=== PATIENT | male | born 1985 | race Caucasian/White ===

== ENCOUNTER → 2016-09-09 | Day surgery (SDC) | payer OTHER ==
[2016-09-07 09:02] VITALS: Ht 182.9 cm; Wt 120.5 kg
[~2016-09-09] VITALS: Ht 182.9 cm; Wt 120.5 kg
[~2016-09-09] MED LIST: FENTANYL CITR 50 MCG/1 ML 5ML VIAL ONE; MELA1TAB5 PO; MIDAZOLAM HCL 5 MG/ML 1 ML VIAL ONE
--- NOTE | 2016-09-09 08:37 | Endo History and Physical ---
History & Physical Date of Service: Sep 09, 2016. Chief Complaint: Diarrhea Referring Physician: Dr. Yara Wooten History of Present Illness 31 yo CM who presents for colonoscopy secondary to diarrhea. Past Surgical History Hx Cardiac Surgery: No Hx Internal Defibrillator: No Hx Pacemaker: No Hx Abdominal Surgery: No Hx of Implantable Prosthesis: No Hx Post-Op Nausea and Vomiting: No Hx Cancer Surgery: No Hx Thoracic Surgery: No Hx Orthopedic: No Hx Urinary Tract Surgery: No Family History None Social History Smoking Status: Never Smoker Hx Substance Use: No Hx Alcohol Use: Yes (OCCASSIONALLY) Allergies Coded Allergies: NO KNOWN DRUG ALLERGIES (Verified Allergy, Unknown, ., 09/09/16) Uncoded Allergies: CATS (Allergy, Unknown, ., 09/07/16) Current Medications Reported Home Medications Medications Dose Route/Sig Max Daily Dose Days Date Category Kp Melatonin (Melatonin) 3 Mg Tab 1 Tab PO HS 30 09/07/16 Reported Vital Signs Weight (Kilograms): 120.45 Height (Feet): 6 Height (Inches): 0 Date Time Temp Pulse Resp B/P Pulse Ox O2 Delivery O2 Flow Rate FiO2 09/09/16 08:25 36.4 74 20 140/84 97 Room Air Physical Exam General Appearance: WD/WN, no apparent distress Respiratory/Chest: Auscultation: breath sounds normal Cardiovascular: Heart Auscultation: RRR Abdomen: Bowel Sounds: normal Inspection & Palpation: soft, non-distended, no tenderness, guarding & rebound Assessment and Plan Assessment: 31 yo CM who presents for colonoscopy secondary to diarrhea. Plan: Proceed with colonoscopy.
--- NOTE | 2016-09-09 09:24 | GI REPORT ---
Procedure Date: 09/09/2016 8:50 AM Procedure: Colonoscopy Indications: Chronic diarrhea Medicines: Fentanyl 100 micrograms IV, Midazolam 6 mg IV Complications: No immediate complications. Estimated Blood Loss: Estimated blood loss: none. Procedure: Pre-Anesthesia Assessment: - Prior to the procedure, a History and Physical was performed, and patient medications and allergies were reviewed. The patient's tolerance of previous anesthesia was also reviewed. The risks and benefits of the procedure and the sedation options and risks were discussed with the patient. All questions were answered, and informed consent was obtained. Prior Anticoagulants: The patient has taken no previous anticoagulant or antiplatelet agents. ASA Grade Assessment: II - A patient with mild systemic disease. After reviewing the risks and benefits, the patient was deemed in satisfactory condition to undergo the procedure. After I obtained informed consent, the scope was passed under direct vision. Throughout the procedure, the patient's blood pressure, pulse, and oxygen saturations were monitored continuously. The scope was introduced through the anus and advanced to the terminal ileum. The colonoscopy was performed without difficulty. The patient tolerated the procedure well. The quality of the bowel preparation was good. The terminal ileum, ileocecal valve, appendiceal orifice, and rectum were photographed. Findings: Non-bleeding internal hemorrhoids were found during retroflexion. The hemorrhoids were small. Several random biopsies were obtained with cold forceps for histology in the entire colon. Fluid aspiration for cytology was performed in the entire colon. Impression: - Non-bleeding internal hemorrhoids. - Several random biopsies were obtained in the entire colon. - Fluid aspiration was performed. Recommendation: - Resume previous diet. - Continue present medications. - Repeat colonoscopy for surveillance based on pathology results. - Return to GI clinic as previously scheduled. Jose Manuel Gleason DO 09/09/2016 9:23:43 AM This report has been signed electronically. Note Initiated On: 09/09/2016 8:50 AM
--- NOTE | 2016-09-09 09:25 | Discharge Instructions ---
Endoscopy Patient Instructions Date / Procedure(s) Performed Sep 09, 2016. Colonoscopy Allergy Information Coded Allergies: NO KNOWN DRUG ALLERGIES (Verified Allergy, Unknown, ., 09/09/16) Uncoded Allergies: CATS (Allergy, Unknown, ., 09/07/16) Discharge Date / Findings Sep 09, 2016. Internal hemorrhoids Random colon biopsies and stool studies performed Medication Instructions OK to resume all medications today as prescribed Reported Home Medications Medications Dose Route/Sig Max Daily Dose Days Date Category Kp Melatonin (Melatonin) 3 Mg Tab 1 Tab PO HS 30 09/07/16 Reported Provider Instructions Activity Restrictions - No exercising or heavy lifting for 24 hours. - Do not drink alcohol the day of the procedure. - Do not drive a car or operate machinery until the day after the procedure. - Do not make any important decisions or sign important papers in 24 hours after the procedure. Following Day: - Return to full activity which may include returning to work/school. Diet Start your diet with liquids and light foods (jello, soup, juice, toast). Then eat your usual diet if not nauseated. Treatment For Common After Affects For mild abdominal pain, bloating, or excessive gas: - Rest - Eat lightly - Lie on right side Follow-Up Information Follow-up with Dr. Yara Wooten as scheduled Anesthesia Information What You Should Know You have had a procedure that required some medicine to reduce anxiety and discomfort. This treatment is called moderate sedation. After receiving the treatment, you may be sleepy, but you will be able to breathe on your own. The effects of the treatment may last for several hours. Follow these instructions along with Activity/Diet recommendations noted above: * Do NOT do anything where dizziness or clumsiness would be dangerous. * Rest quietly at home today, then you can be up and about tomorrow. * Have a responsible person stay with you the rest of today. * You may have had an I.V. today. If so, you may take the dressing off later today. Recommendations Call your doctor if: * Trouble breathing * Continuous vomiting for more than 24 hours * Temperature above 101 degrees * Severe abdominal pain or bloating * Pain not relieved by pain medicine ordered * There is increased drainage or redness from any incision * A large amount of rectal bleeding greater than 2-3 tablespoons. (If you had a polyp/s removed or have hemorrhoids, a small amount of blood - from the rectum is to be expected.) * You have any unanswered questions or concerns. IN THE EVENT OF A SERIOUS EMERGENCY, GO TO THE NEAREST EMERGENCY ROOM Your discharge instructions were prepared by provider Jose Manuel Gleason. Patient Instructions Signature Page Luther Villarreal Patient (or Guardian) Signature/Date: I have read and understand the instructions given to me by my caregivers. Caregiver/RN/Doctor Signature/Date: The above-named patient and/or guardian has received patient instructions on this date. + Original Patient Signature Page (only) stays with chart. Please make copy for patient.
[2016-09-09 10:02] VITALS: BP 115/63; PULSE 65; O2SAT 99
== END | disposition home or self-care (01) ==
LOC: C.GI 08:11
PROVIDERS: ATTEND Internal Medicine
DX: R19.7 Diarrhea, unspecified (principal); K64.8 Other hemorrhoids

== ENCOUNTER → 2016-10-28 | Outpatient (CLI) | payer OTHER ==
[~2016-10-28] MED LIST changes: -FENTANYL CITR 50 MCG/1 ML 5ML VIAL ONE; -MIDAZOLAM HCL 5 MG/ML 1 ML VIAL ONE
--- NOTE | 2016-10-29 05:45 | PAP/PSG TECHNICIAN REPORT ---
[facility] Tail Puller Polysomnogram Report Study name: None Report date: 10/29/2016 Study date: 10/28/2016 Referring Physician: DR. SARAH WATERS Name: IMAN FERRIS Interpreting Physician: Phillip Gamble D.O. Date of : 1985 Tail Puller: Kelsey Maciel RPSGT. Sex: Male Age: 31 Study Type: PSG Weight: 270 lbs Height: 31 years, Height 6' 0" BMI: 36.61 Medications: MELATONIN 3 MG Patient History 31 yr-old male here for a baseline study. He has a history of snoring, daytime sleepiness, and frequent awakenings. His Elliott scale is 11. The test was started on room air. ETCO2 testing was not utilized during this study. Room 3 Parameters Monitored NPSG: E1-M2, E2-M1, Fp1-M2, Fp2-M1, F3-M2, F4-M2, F4-M1, C3-M2, C4-M2, C4-M1, O1-M2, O2-M2, O2-M1, T3-M2, T4-M1, P3-M2, P4-M1, CHIN1, CHIN2, HR, EKG, Legs, PFLOW, SNOR, FLOW, CFLOW, Tidal Volume, THOR, ABDO, SpO2, PLTH, CPRESS, ETCO2 Wave, ETCO2, pH Sleep Architecture Sleep Stages Time at Lights Off 11:01:09 PM STAGES Time (min.) TST (%) Time at Lights On 5:14:09 AM Wake 57.5 -- Total Recording Time (TRT) 373.00 min. N1 32.5 10 Total Sleep Period (TSP) 332.5 min. N2 213.0 68 Total Sleep Time (TST) 315.5min. N3 4.5 1 Awake Time 57.5 min. REM 65.5 21 Wake after Sleep Onset 30.5 min. Sleep Efficiency (SE) 85 % Sleep Onset Latency (MONICA) 27.0 min. Number of Stage 1 Shifts None Awakenings 14 Stage Changes 94 Number of REM periods 3 REM 65.5 21 REM Latency 81.0 min. NREM 250.0 79 Body Position Analysis Supine Right Left Side Prone Vertical Total Sleep Time (min.) 270.5 96.2 0.0 96.18 0.0 0.0 Total Sleep Time (%) 70% 30% 0% 30 0% N/A% Total Sleep Time REM (min.) 29.5 36.0 0.0 None 0.0 0.0 Total Sleep Time NREM (min.) 189.8 60.2 0.0 None 0.0 0.0 Intermittent Wake (min.) 51.2 6.3 0.0 None 0.0 0.0 Total Sleep Period (%) 70% None None None None None Arousals Myoclonus (PLM) * Events Count Index Events Count Index Spontaneous 28 5 Events Awake (PLMW) 61 63.7 Respiratory 10 1.9 Events Asleep w/ Arousal (PLMA) 9 1.7 PLM 9 2 Events Asleep w/o Arousal (PLMS) 81 15.4 Snoring 4 1 Total Asleep 90 17.1 Total 51 10 Total 151 24 Respiratory Analysis * CA OA MA CH H RERA Total Count 0 0 0 0 28 5 28 Index 0.0 0.0 0.0 0 5.3 1 6.3 Mean Duration 0.0 0.0 0.0 0.00 17.4 17.7 17.5 Longest Duration 0.0 0.0 0.0 0.00 0.0 18.8 34.9 Respiratory Event Summary Total Supine ~Supine Right Left Prone REM NREM Apneas Count 0 0 0 0 N/A N/A 0 0 Index 0.0 0 0 0.0 N/A N/A 0 0 Hypopneas (4% Desat) Count 28 25 3 3 N/A N/A 9 19 Index 5.3 6.8 2 1.9 N/A N/A 8.2 4.6 Apneas & All Hypopneas Count 28 25 3 3 N/A N/A 9 19 Index 5.3 7 2 2 N/A N/A 8.2 4.6 Respiratory Events (Ct Scan Technologist+All Hyp+RERA) Count 28 30 3 3 N/A N/A 9 19 Index 6.3 8 2 1.9 N/A N/A 8.2 5.8 Respiratory Related Arousal Count 10 30 1 1 N/A N/A 0 10 Index 1.9 2 1 1 N/A N/A 0 2 Snoring Analysis Supine Right Left Prone REM NREM Total Snore duration 3.4 min Snores count 92 51 N/A N/A 5 138 143 Snore mean duration 1.4 Sec Snores index 25 32 N/A N/A 4.6 33.1 27.2 TST with snoring (%) 1.1% Desaturation Event Summary: Minimum %SpO2 Event Count Mean/Min/Max Duration(sec.) Desaturation Index % Time In Bed > 90 41 29.5 / 10.5 / 55.0 6.7 98.1 86 - 90 2 19.1 / 17.5 / 20.8 17.0 1.9 81 - 85 0 N/A 0.0 0.0 76 - 80 0 N/A 0.0 0.0 71 - 75 0 N/A 0.0 0.0 66 - 70 0 N/A 0.0 0.0 61 - 65 0 N/A 0.0 0.0 56 - 60 0 N/A 0.0 0.0 51 - 55 0 N/A 0.0 0.0 < 50 0 N/A 0.0 0.0 Total REM NREM Awake <50% 0.0 min. 0.0 min. 0.0 min. 0.0 min. 51 - 60% 0.0 min. 0.0 min. 0.0 min. 0.0 min. 61 - 70% 0.0 min. 0.0 min. 0.0 min. 0.0 min. 71 - 80% 0.0 min. 0.0 min. 0.0 min. 0.0 min. 81 - 90% 7.1 min. 2.0 min. 5.0 min. 0.1 min. 91 - 100% 365.8 min. 63.5 min. 245.0 min. 57.3 min. Average 93 93 93 94 Minimum SpO2 86 86 88 90 Desaturation Event Index 6.6 11.0 6.0 4.2 # Desat. Events below 89% 3 2 1 N/A Time(%) with Saturation below 89% 0.1 0.1 0.0 0.0 Time(min.) with Saturation below 89% 0.4 0.3 0.1 0.0 Time (mins) REM (mins) NREM (mins) % of TST SpO2 Below 90% 24 10 N14 0.6 SpO2 Below 88% 1 0 0 0 Heart Rate Analysis Min (bpm) Max (bpm) Average (bpm) Awake 41 84 52 NREM 37 73 47 REM 40 66 51 Overall 37 73 48 Supplemental O2 Values Minimum O2 level: None Value Start Time End Time Tail Puller Comments Mr. Ferris slept in the right and supine positions. No cardiac arrhythmias or PLMs noted. No bruxism noted. Snoring was noted and scored as a 2 on a scale of 1 through 5. (0=no snoring, 5=snoring loud enough to be heard through a closed door or down the [address] way). He did not wake up to use the restroom during the night. Mr. Ferris stated that he slept about the same as usual. The final report will be interpreted and signed by a sleep physician. The completed physician report will then be placed in the patient medical record. Therapy (cm H2O) 0 TIB (min.) 373.0 TST (min.) 315.5 Sleep Onset (min.) 27.0 REM Onset From Sleep (min.) 81.0 Sleep Efficiency % 85 Wakefulness (%) 15 Wakefulness (min.) 57.5 NREM 1 (%) 10 NREM 1 (min.) 32.5 NREM 2 (%) 68 NREM 2 (min.) 213.0 NREM 3 (%) 1 NREM 3 (min.) 4.5 REM (%) 21 REM (min.) 65.5 # Arousals 51 Arousal Index 10 # Snore 143 Snore Index 27.2 AHI 5.3 AHI Supine 7 AHI Non-Supine 2 NREM AHI 4.6 REM AHI 8.2 RDI 6.3 # Obstructive Apnea 0 # Central Apnea 0 # Mixed Apnea 0 # Hypopneas 28 RERAs 5 Total Respiratory Events 33 Time Below SpO2 89% (min.) 0.4 Mean NREM SpO2 (%) 93 Mean REM SpO2 (%) 93 Mean Sleep SpO2 (%) 93 Min NREM SpO2 (%) 88 Min REM SpO2 (%) 86 Position Supine (min.) 270.5 Position Non-supine (min.) 96.2 LM Index Sleep 17.1 LM Index NREM 18.2 LM Index REM 12.8 Mean Heart Rate (bpm) 48 Min Heart Rate (bpm) 37
--- NOTE | 2016-10-29 21:48 | POLYSOMNOGRAPH REPORT ---
The patient is referred by Dr. Yara Wooten. CLINICAL DATA: The patient is a 31-year-old male with a BMI of 36.6. He has chief complaint of snoring, excessive daytime somnolence, disturbed nocturnal sleep, nocturnal gasping. His [place] score is 11 out of a possible 24. This was a diagnostic polysomnography in the sleep lab. SLEEP ARCHITECTURE: The total sleep period was 332.5 minutes. The total sleep time was 315.5 minutes. Sleep efficiency was minimally abnormal at 85%. The sleep onset latency was prolonged to 27.0 minutes. REM latency was normal at 81 minutes. Wake after sleep onset was 30.5 minutes. Sleep consisted of stage N1 10%, stage N2 68%, stage N3 1%, REM sleep 21%. AROUSAL DATA: The patient had a total of 51 arousals including 28 spontaneous arousals, 10 respiratory arousals, 9 PLM arousals, and 4 snoring arousals. The arousal index was 10 events per hour. PLM DATA: The patient had a total of 81 periodic limb movements of sleep for an index of 15.4. There were 9 periodic limb movements with arousals for a PLM arousal index of only 1.7. EKG: The cardiac rhythm was normal sinus. The cardiac rates ranged from 37-73 beats per minute. RESPIRATORY DATA: The patient had a total of 28 hypopneas with 0 apneas. He also had 5 RERAs. The 4% rule was utilized for scoring hypopneas. The apnea-hypopnea index was minimally abnormal at 5.3 events per hour. Most of these occurred supine. OXIMETRY DATA: The patient's average saturation was 93%. There was only a total of 0.4 minutes with saturations less than 89% and the lowest saturation was 86%. This reflects a very transient desaturation that could even be technical in nature. INFRASTRUCTURE ARCHITECT COMMENTS: The patient slept in the right and supine positions. No cardiac arrhythmias were noted. No bruxism noted. Snoring was heard on a scale of 2 out of a possible 1 through 5. The patient indicated that he slept about the same as he usually does. IMPRESSIONS: 1. Obstructive sleep apnea -- very mild. 2. Periodic limb movement disorder. COMMENTS: The patient had a minimally decreased sleep efficiency. Sleep architecture was normal. He had a small number of respiratory events, all of which were hypopneas. His apnea-hypopnea index is borderline. Typically, normal is considered 0-5. He was 5.3. His oxygenation was normal. He had a modest number of limb movements but without arousals. In all likelihood, conservative measures would be sufficient for this patient. RECOMMENDATIONS: 1. The patient should be advised to initiate a weight reduction program in light of his elevated body mass index of 36.61. 2. The patient should avoid sleeping in the supine position. Twenty-five out of 28 hypopneas occurred when he was supine. 3. The patient should be advised of the appropriate principles of sleep hygiene, particularly having a regular sleep-wake schedule and allowing approximately 8 hours of sleep time per night. 4. If the patient persisted with symptoms despite the above, consideration could be given to a trial of nasal CPAP, although it is not definite that insurance would authorize this. [facility]
== END | disposition home or self-care (01) ==
LOC: C.NEUR 20:00
PROVIDERS: ATTEND Internal Medicine
DX: G47.33 Obstructive sleep apnea (adult) (pediatric) (principal); G47.61 Periodic limb movement disorder